=== PATIENT | female | born 1945 | race Caucasian/White ===

== ENCOUNTER 2017-08-03 06:45 | Day surgery (SDC) | payer BC, MEDICARE ==
[2017-08-03] VITALS (9 sets, daily range): BP systolic 113–150; BP diastolic 75–90; PULSE 61–73; TEMP 98.4–99.1
[~2017-08-03] VITALS: Ht 154.9 cm; Wt 49.2 kg
[2017-08-03] MEDS ORDERED: SYSTANE GEL EYE10 ML OP (07:47)
[2017-08-03] MEDS ORDERED: AMARYL1 MG PO (07:47)
[2017-08-03] MEDS ORDERED: PRINIVIL10 MG PO (07:48)
[2017-08-03] MEDS ORDERED: TIROSINT75 MC1 PO (07:48)
[2017-08-03] MEDS ORDERED: NORCO 325 MG-51 TAB PO (11:52)
[2017-08-03] MEDS ORDERED: COLACE 100100 MG/CAP PO (11:52)
== END 2017-08-03 15:16 | disposition home or self-care (01) ==
LOC: SDCO 06:45
DX: K41.91 Unilateral femoral hernia, without obstruction or gangrene, recurrent (principal); I10 Essential (primary) hypertension; E03.9 Hypothyroidism, unspecified; Z86.73 Personal history of transient ischemic attack (TIA), and cerebral infarction without residual deficits; I25.10 Atherosclerotic heart disease of native coronary artery without angina pectoris; K21.9 Gastro-esophageal reflux disease without esophagitis; Z95.828 Presence of other vascular implants and grafts; Z79.84 Long term (current) use of oral hypoglycemic drugs; Z87.891 Personal history of nicotine dependence; Z82.49 Family history of ischemic heart disease and other diseases of the circulatory system
CPT/HCPCS: C1781; J0690; J1100; J1170; J2250; J2405; J2704; J3010; J7030